=== PATIENT | female | born 1990 | race Caucasian/White ===

== ENCOUNTER 2018-02-20 20:55 | Emergency (ER) | payer OTHER ==
[2018-02-20 21:13] VITALS: BP 115/68
--- NOTE | 2018-02-20 21:28 | UC ---
Complaint Female HPI - HPI Summary HPI Summary: Pt c/o sudden on set of urinary frequency, urgency and dysuria that began this morning. - History Of Current Complaint Stated Complaint: POSSIBLE UTI Time Seen by Provider: 02/20/18 20:57 Hx Obtained From: Patient ?: No Onset/Duration: Sudden Onset, Still Present Timing: Constant Severity Initially: Mild Severity Currently: Mild Pain Intensity: 4 Character: Dull, Burning Aggravating Factor(s): Urination Associated Signs And Symptoms: Positive: Negative - Risk Factors Ectopic Risk Factor: Negative Ovarian Torsion Risk Factor: Reproductive Age - Allergies/Home Medications Allergies/Adverse Reactions: Allergies Allergy/AdvReac Type Severity Reaction Status Date / Time No Known Allergies Allergy Verified 02/20/18 21:10 Home Medications: Home Medications Ibuprofen TAB* [Motrin TAB* 600 MG] 600 mg PO Q6H PRN 02/20/18 [History Confirmed 02/20/18] PMH/Surg Hx/FS Hx/Imm Hx Previously Healthy: Yes - Surgical History Surgical History: None - Family History Known Family History: Positive: Cardiac Disease - Social History Occupation: Employed Full-time Lives: With Family Alcohol Use: Occasionally Substance Use Type: None Smoking Status (MU): Never Smoked Tobacco Have You Smoked in the Last Year: No Review of Systems Constitutional: Negative Skin: Negative Eyes: Negative ENT: Negative Respiratory: Negative Cardiovascular: Negative Gastrointestinal: Negative Genitourinary: Dysuria, Frequency, Urgency Motor: Negative Neurovascular: Negative Musculoskeletal: Negative Neurological: Negative Psychological: Negative Is Patient Immunocompromised?: No All Other Systems Reviewed And Are Negative: Yes Physical Exam Triage Information Reviewed: Yes Appearance: Well-Appearing Vital Signs: Initial Vital Signs Temp 98.4 F 02/20/18 21:07 Pulse 80 02/20/18 21:07 Resp 14 02/20/18 21:07 BP 115/68 02/20/18 21:07 Pulse Ox 100 02/20/18 21:07 Vital Signs Reviewed: Yes Eye Exam: Normal ENT Exam: Normal ENT: Positive: Hearing grossly normal Dental Exam: Normal Neck exam: Normal Respiratory: Positive: No respiratory distress Abdominal Exam: Normal Abdomen Description: Positive: Nontender Musculoskeletal Exam: Normal Neurological Exam: Normal Psychological Exam: Normal Skin Exam: Normal Complaint Female Dx - Differential Dx/Diagnosis Differential Diagnosis/HQI/PQRI: Urinary Tract Infection Provider Diagnoses: UTI Discharge - Sign-Out/Discharge Documenting (check all that apply): Patient Departure - Discharge Plan Condition: Stable Disposition: HOME Prescriptions: Cephalexin CAP* [Keflex 500 CAP*] 500 mg PO Q12H #14 cap Patient Education Materials: Urinary Tract Infection in Women (ED) Referrals: Pratibha Srinivasan MD [Primary Care Provider] - If Needed - Billing Disposition and Condition Condition: STABLE Disposition: Home
[2018-02-20] MEDS ORDERED: Cephalexin CAP* 500 MG PO ONE (21:29)
== END 2018-02-20 21:40 | disposition home or self-care (01) ==
LOC: UCCORT 20:55
DX: N39.0 Urinary tract infection, site not specified (principal)
CPT/HCPCS: 81003; 87086; 99212; A9270-GY; G0463